=== PATIENT | female | born 1990 | race African-American/Black ===

== ENCOUNTER 2017-03-18 23:50 | Emergency (ER) | payer OTHER ==
[2017-03-19 00:25] VITALS: BP 108/60; PULSE 94; TEMP 98.3; BMI 25.6
--- NOTE | 2017-03-19 00:36 | PDOC ---
History of Present Illness <Nellie Breen - Last Filed: 03/19/17 00:35> - General History Source: Patient Exam Limitations: No Limitations - History of Present Illness Initial Comments: 03/19/17 01:28 The patient is a 26 year old female who is currently 11 weeks , A3, with a significant past medical history of, who presents to the emergency department with abdominal pain and vaginal bleeding onset today. She reports that she was having sexual intercourse when the symptoms began. She notes that she has gone through one pad today thus far. The patient denies chest pain, shortness of breath, headache and dizziness. Denies fever, chills, nausea, vomit, diarrhea and constipation. Denies dysuria, frequency and urgency. Allergies: None Past surgical history: None reported Social history: No alcohol, tobacco or drug use reported <Osmani Bueno - Last Filed: 03/19/17 02:03> <Megan Pascual - Last Filed: 03/19/17 05:22> - General Chief Complaint: Pain, Acute Stated Complaint: 11 WEEKS VAGNIAL BLEED Time Seen by Provider: 03/19/17 00:31 Past History - Suicide/Smoking/Psychosocial Hx Smoking History: Never smoked Have you smoked in the past 12 months: No Information on smoking cessation initiated: No Hx Alcohol Use: No Drug/Substance Use Hx: No <Nellie Breen - Last Filed: 03/19/17 00:35> <Osmani Bueno - Last Filed: 03/19/17 02:03> <Megan Pascual - Last Filed: 03/19/17 05:22> - Past Medical History Allergies/Adverse Reactions: Allergies Allergy/AdvReac Type Severity Reaction Status Date / Time No Known Allergies Allergy Verified 03/19/17 00:23 Home Medications: Ambulatory Orders Nitrofurantoin Macrocrystal [Macrodantin -] 100 mg PO BID 03/19/17 Vit/Iron Fumarate/FA [ Tablet] 1 each PO DAILY 03/19/17 Review of Systems - Review of Systems Able to Perform ROS?: Yes Comments:: 03/19/17 01:29 GENERAL/CONSTITUTIONAL: No fever or chills. No weakness. HEAD, EYES, EARS, NOSE AND THROAT: No change in vision. No ear pain or discharge. No sore throat.- CARDIOVASCULAR: No chest pain or shortness of breath RESPIRATORY: No cough, wheezing, or hemoptysis. GASTROINTESTINAL: (+) Abdominal pain. No nausea, vomiting, diarrhea or constipation. GENITOURINARY: (+) Vaginal bleeding. No dysuria, frequency, or change in urination. MUSCULOSKELETAL: No joint or muscle swelling or pain. No neck or back pain. SKIN: No rash NEUROLOGIC: No headache, vertigo, loss of consciousness, or change in strength/ sensation. ENDOCRINE: No increased thirst. No abnormal weight change HEMATOLOGIC/LYMPHATIC: No anemia, easy bleeding, or history of blood clots. ALLERGIC/IMMUNOLOGIC: No hives or skin allergy. <Osmani Bueno - Last Filed: 03/19/17 02:03> *Physical Exam - Vital Signs Last Vital Signs Temp Pulse Resp BP Pulse Ox 98.3 F 94 H 20 108/60 100 03/19/17 00:23 03/19/17 00:23 03/19/17 00:23 03/19/17 00:23 03/19/17 00:23 <Nellie Breen - Last Filed: 03/19/17 00:35> - Vital Signs Last Vital Signs Temp Pulse Resp BP Pulse Ox 98.3 F 94 H 20 108/60 100 03/19/17 00:23 03/19/17 00:23 03/19/17 00:23 03/19/17 00:23 03/19/17 00:23 - Physical Exam Comments: 03/19/17 01:29 GENERAL: Awake, alert, and fully oriented, in no acute distress HEAD: No signs of trauma, normocephalic, atraumatic EYES: PERRLA, EOMI, sclera anicteric, conjunctiva clear ENT: Auricles normal inspection, hearing grossly normal, nares patent, oropharynx clear without exudates. Moist mucosa NECK: Normal ROM, supple, no lymphadenopathy, JVD, or masses LUNGS: No distress, speaks full sentences, clear to auscultation bilaterally HEART: Regular rate and rhythm, normal S1 and S2, no murmurs, rubs or gallops, peripheral pulses normal and equal bilaterally. ABDOMEN: Soft, nontender, normoactive bowel sounds. No guarding, no rebound. No masses EXTREMITIES : Normal inspection, Normal range of motion, no edema. No clubbing or cyanosis. NEUROLOGICAL: Cranial nerves II through XII grossly intact. Normal speech, normal gait, no focal sensorimotor deficits SKIN: Warm, Dry, normal turgor, no rashes or lesions noted. PELVIC EXAM: (+) Mild vaginal bleeding in the vault. Os is closed. Mild left adnexal tenderness. <Osmani Bueno - Last Filed: 03/19/17 02:03> - Vital Signs Last Vital Signs Temp Pulse Resp BP Pulse Ox 98.3 F 94 H 20 108/60 100 03/19/17 00:23 03/19/17 00:23 03/19/17 00:23 03/19/17 00:23 03/19/17 00:23 <Megan Pascual - Last Filed: 03/19/17 05:22> ED Treatment Course - LABORATORY CBC & Chemistry Diagram: 03/19/17 02:05 03/19/17 02:05 - ADDITIONAL ORDERS Additional order review: Laboratory Results 03/19/17 02:05 Sodium 140 Potassium 3.7 Chloride 105 Carbon Dioxide 26 Anion Gap 9 BUN 11 Creatinine 0.7 Creat Clearance w eGFR > 60 Random Glucose 98 Calcium 8.6 Total Bilirubin 0.4 AST 6 L ALT 10 L Alkaline Phosphatase 53 Total Protein 6.7 Albumin 3.5 03/19/17 02:05 RBC 3.92 MCV 91.5 MCHC 33.4 RDW 12.9 MPV 9.1 Neutrophils % 63.9 Lymphocytes % 25.1 Monocytes % 9.4 Eosinophils % 0.7 Basophils % 0.9 <Megan Pascual - Last Filed: 03/19/17 05:22> Medical Decision Making - Medical Decision Making 03/19/17 05:21 RH POSITIVE; pt has an 8 week to 9 week fetus. She will be sent home with a dx of threatened . Home with MAINTENANCE CUSTODIAN follow up. <Megan Pascual - Last Filed: 03/19/17 05:22> *DC/Admit/Observation/Transfer <Nellie Breen - Last Filed: 03/19/17 00:35> - Attestations Scribe Attestion: 03/19/17 01:30 Documentation prepared by Osmani Bueno, acting as ophthalmic medical technologist for Nellie Breen MD <Osmani Bueno - Last Filed: 03/19/17 02:03> - Discharge Dispostion Admit: No <Megan Pascual - Last Filed: 03/19/17 05:22> Diagnosis at time of Disposition: Threatened - Discharge Dispostion Disposition: HOME Condition at time of disposition: Improved - Referrals Referrals: Aby Wilhelm MD [Staff Physician] - - Patient Instructions Printed Discharge Instructions: DI for Threatened - Post Discharge Activity
[2017-03-19 02:25] LABS: BASOPHIL 0.9 % (0-2.0); EOSINOPHIL 0.7 % (0-4.5); MCH 30.6 pg (25.7-33.7); MCHC 33.4 g/dl (32.0-36.0); MEAN CELL VOLUME 91.5 fl (80-96); MEAN PLT VOLUME 9.1 fl (7.5-11.1); NEUTROPHILS 63.9 % (42.8-82.8); PLATELET COUNT 199 K/MM3 (134-434); RDW 12.9 % (11.6-15.6); WHITE BLOOD COUNT 7.2 K/mm3 (4.0-10.0)
[2017-03-19 02:54] LABS: ALBUMIN 3.5 g/dl (3.4-5.0); ANION GAP 9 (8-16); BILIRUBIN,TOTAL 0.4 mg/dL (0.2-1.0); CALCIUM 8.6 mg/dL (8.5-10.1); CO2 26 mmol/L (21-32); CREATININE 0.7 mg/dL (0.55-1.02); GLUCOSE,RANDOM 98 mg/dL (74-106); SGOT/AST 6 U/L (15-37); SGPT/ALT 10 U/L (12-78); TOT PROT 6.7 g/dl (6.4-8.2)
[2017-03-19 02:56] LABS: ALK PHOS 53 U/L (45-117)
== END 2017-03-19 03:20 | disposition home or self-care (01) ==
LOC: JER 23:50
DX: O26.891 Other specified pregnancy related conditions, first trimester (principal); O20.0 Threatened abortion; Z3A.08 8 weeks gestation of pregnancy
CPT/HCPCS: 36415; 76817-TC; 80053; 84702; 85025; 86850; 86900; 86901; 99283-25

== ENCOUNTER 2017-03-22 18:55 | Emergency (ER) | payer OTHER ==
[2017-03-22 19:00] VITALS: BP 131/66; PULSE 87; TEMP 97.8; BMI 25.0
[2017-03-22 20:36] LABS: BASOPHIL 0.5 % (0-2.0); EOSINOPHIL 0.5 % (0-4.5); MCH 31.7 pg (25.7-33.7); MCHC 34.5 g/dl (32.0-36.0); MEAN CELL VOLUME 91.8 fl (80-96); MEAN PLT VOLUME 8.9 fl (7.5-11.1); NEUTROPHILS 64.9 % (42.8-82.8); PLATELET COUNT 193 K/MM3 (134-434); RDW 13.2 % (11.6-15.6); WHITE BLOOD COUNT 6.5 K/mm3 (4.0-10.0)
--- NOTE | 2017-03-22 21:13 | PDOC ---
History of Present Illness - General History Source: Patient Exam Limitations: No Limitations - History of Present Illness Initial Comments: 03/22/17 21:15 The patient is a 26 year old approximately 9 weeks female (A3), with no significant past medical history, who presents to the emergency department with vaginal bleeding for approximately 4 days. The patient reports she has been noting bright red spotting when she wipes after urination for 4 days. She denies any vaginal blood clots, dysuria, hematuria, frequency, or urgency. She denies any abdominal pain, nausea, vomiting, diarrhea, or constipation. Patient reports she was seen in the ED on 03/19/17 with similar symptoms, where she was told she had a threatened . However, when the patient went to visit her PCP, Dr. Jarrell, the patient was told the US revealed no heart motion. Patient states she desires a repeat US to confirm what her PCP told her. She denies any nausea, vomiting, fever, or chills. She denies any heavy lifting, recent travel, or sick contacts. 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 Social History: Non smoker. No ETOH or recreational drug use. PCP: Dr. Jarrell <Jennifer Ye - Last Filed: 03/22/17 22:04> <Edward Mckeon - Last Filed: 03/22/17 22:09> - General Chief Complaint: Vaginal Bleeding Stated Complaint: VAGINAL BLEEDING Time Seen by Provider: 03/22/17 20:06 Past History <Jennifer Ye - Last Filed: 03/22/17 22:04> - Past Medical History Anemia: No Asthma: No Cancer: No Cardiac Disorders: No CVA: No COPD: No DVT: No Dementia: No Diabetes: No Dialysis: No GI Disorders: No Disorders: No HTN: No Hypercholesterolemia: No Kidney Stones: No Liver Disease: No Psychiatric Problems: No Seizures: No Thyroid Disease: No Lung CA: No - Surgical History Neurologic Surgery: Yes (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) - Reproductive History Is Patient Now?: Yes (#): 5 Para: 1 Therapeutic (s) & number: Yes (3) - Suicide/Smoking/Psychosocial Hx Smoking History: Never smoked Have you smoked in the past 12 months: No Hx Alcohol Use: No Drug/Substance Use Hx: No Substance Use Type: None <Edward Mckeon - Last Filed: 03/22/17 22:09> - Past Medical History Allergies/Adverse Reactions: Allergies Allergy/AdvReac Type Severity Reaction Status Date / Time No Known Allergies Allergy Verified 03/22/17 19:00 Home Medications: Ambulatory Orders Nitrofurantoin Macrocrystal [Macrodantin -] 100 mg PO BID 03/19/17 Vit/Iron Fumarate/FA [ Tablet] 1 each PO DAILY 03/19/17 Review of Systems - Review of Systems Able to Perform ROS?: Yes Comments:: 03/22/17 21:16 CONSTITUTIONAL: No fever, no chills, no fatigue EYES: No visual changes ENT: No ear pain, no sore throat CARDIOVASCULAR: No chest pain, no palpitations RESPIRATORY: No cough, no SOB GI: No abdominal pain, no nausea, no vomiting, no constipation, no diarrhea GENITOURINARY: No dysuria, no frequency, no hematuria PELVIC: Yes vaginal bleeding/spotting. No vaginal clots or discharge. MUSCULOSKELETAL: No back pain, no joint pain, no myalgias SKIN: No rash NEURO: No headache <Tiffanie Yeomilsy - Last Filed: 03/22/17 22:04> *Physical Exam - Vital Signs Last Vital Signs Temp Pulse Resp BP Pulse Ox 97.8 F 87 20 131/66 100 03/22/17 18:56 03/22/17 18:56 03/22/17 18:56 03/22/17 18:56 03/22/17 18:56 - Physical Exam Comments: 03/22/17 21:16 CONSTITUTIONAL: Well-appearing; well-nourished; in no apparent distress HEAD: Normocephalic; atraumatic EYES: PERRL; EOM intact ENMT: External appears normal; normal oropharynx NECK: Supple; non-tender; no cervical lymphadenopathy CARD: Normal S1, S2; no murmurs, rubs, or gallops RESP: Normal chest excursion with respiration; breath sounds clear and equal bilaterally; no wheezes, rhonchi, or rales ABD: Soft, non-distended; non-tender; no palpable organomegaly, no palpable hernias PELVIC: Defer to US. EXT: Normal ROM in all four extremities; non-tender to palpation; distal pulses intact SKIN: Warm, dry, no rash NEURO: No focal neurological deficiencies. <Jennifer eY - Last Filed: 03/22/17 22:04> - Vital Signs Last Vital Signs Temp Pulse Resp BP Pulse Ox 97.8 F 87 20 131/66 100 03/22/17 18:56 03/22/17 18:56 03/22/17 18:56 03/22/17 18:56 03/22/17 18:56 <Edward Mckeon - Last Filed: 03/22/17 22:09> ED Treatment Course - LABORATORY CBC & Chemistry Diagram: 03/22/17 20:32 - ADDITIONAL ORDERS Additional order review: Laboratory Results 03/22/17 20:32 Beta HCG, Quant 860.7 03/22/17 20:32 RBC 3.86 MCV 91.8 MCHC 34.5 RDW 13.2 MPV 8.9 Neutrophils % 64.9 Lymphocytes % 24.5 Monocytes % 9.6 Eosinophils % 0.5 Basophils % 0.5 - RADIOLOGY Radiograph Interpretation: 03/22/17 22:04 EXAM: Obstetrics US INTERPRETED BY: Dr. Harrison REVIEWED BY: Dr. Mckeon IMPRESSION: No definite interval change is seen in comparison to a previous exam of 03/19/2017. Single nonviable intrauterine gestation at approximately 9 weeks 3 days. No cardiac activity is seen. <Jennifer Ye - Last Filed: 03/22/17 22:04> - LABORATORY CBC & Chemistry Diagram: 03/22/17 20:32 - ADDITIONAL ORDERS Additional order review: Laboratory Results 03/22/17 20:32 Beta HCG, Quant 860.7 03/22/17 20:32 RBC 3.86 MCV 91.8 MCHC 34.5 RDW 13.2 MPV 8.9 Neutrophils % 64.9 Lymphocytes % 24.5 Monocytes % 9.6 Eosinophils % 0.5 Basophils % 0.5 - RADIOLOGY Radiology Studies Ordered: Category Date Time Status TRANSVAGINAL US PREG [US] Stat Ultrasound 03/22/17 20:21 Ordered <Edward Mckeon - Last Filed: 03/22/17 22:09> Medical Decision Making - Medical Decision Making 03/22/17 22:08 26-year-old female, 2 para 1, presents to the ER with minimal vaginal spotting. Patient was seen and evaluated in this ER 3 days previously and diagnosed with threatened AB. The patient followed up with her PUMPING STATION SUPERVISOR, she was notified that the was nonviable. Patient returns for reevaluation. Patient's afebrile and hemodynamically stable. Abdominal exam is within normal limit. Beta-hCG has decreased from 1400 to 860 and repeat ultrasound shows no evidence of face. Patient will follow-up with PUMPING STATION SUPERVISOR for further management of this miscarriage. <Edward Mckeon - Last Filed: 03/22/17 22:09> *DC/Admit/Observation/Transfer - Attestations Scribe Attestion: 03/22/17 21:16 Documentation prepared by Jennifer Ye, acting as hospital medical biller for Edward Mckeon MD. <Jennifer Ye - Last Filed: 03/22/17 22:04> - Attestations Physician Attestion: 03/22/17 22:06 The documentation was prepared by the scribe under my direct supervision. I have reviewed the documentation which correctly represents the findings, medical decision-making and critical action taken by me. <Edward Mckeon - Last Filed: 03/22/17 22:09> Diagnosis at time of Disposition: Miscarriage - Discharge Dispostion Disposition: HOME Condition at time of disposition: Stable - Referrals Referrals: Cee Jarrell MD [Primary Care Provider] - - Patient Instructions Printed Discharge Instructions: DI for Miscarriage - Post Discharge Activity
[2017-03-22 21:17] LABS: URINE APPEARANCE CLOUDY; URINE BILIRUBIN NEGATIVE (NEGATIVE); URINE BLOOD NEGATIVE (NEGATIVE); URINE COLOR YELLOW; URINE GLUCOSE (UA) NEGATIVE (NEGATIVE); URINE KETONE NEGATIVE (NEGATIVE); URINE NITRITE NEGATIVE (NEGATIVE); URINE PROTEIN NEGATIVE (NEGATIVE)
[2017-03-23 10:42] LABS: URINE LEUK ESTERASE Negative (NEGATIVE)
== END 2017-03-22 22:16 | disposition home or self-care (01) ==
LOC: JER 18:55
DX: O02.1 Missed abortion (principal); Z3A.09 9 weeks gestation of pregnancy
CPT/HCPCS: 36415; 76801-TC; 81003; 84702; 85025; 86850; 86900; 86901; 99284-25

== ENCOUNTER 2017-05-24 21:28 | Emergency (ER) | payer OTHER ==
[2017-05-24 22:38] VITALS: BP 99/64; PULSE 68; TEMP 98.9; BMI 25.0
--- NOTE | 2017-05-24 22:59 | PDOC ---
History of Present Illness - General History Source: Patient Exam Limitations: No Limitations - History of Present Illness Initial Comments: 05/24/17 23:03 The patient is a 26 year old female presenting with her boyfriend, with no significant past medical history, who presents to the emergency department with right foot swelling, pain and numbness/tingling for the past few days. But notes that she has been having swelling and tingling on the right foot intermittently for the past 7 years. She reports that this began when she got 7 years ago and gain an excessive amount of weight. She states that at time she wakes up with the foot swelling and sometimes she doesnt, other times the pain wakes her from her sleep. She reports that she works standing up most of the day. The patient denies chest pain, shortness of breath, headache and dizziness. Denies fever, chills, nausea, vomit, diarrhea and constipation. Allergies: Hydrocodeine Past Surgical History: Benign tumor removed from kidney, . Social History: Non smoker. No ETOH or recreational drug use. PCP: Dr. Jarrell <Osmani Bueno - Last Filed: 05/24/17 23:02> <Radha Lopez - Last Filed: 05/25/17 00:43> - General Chief Complaint: Edema Stated Complaint: FOOT INJURY Time Seen by Provider: 05/24/17 22:51 Past History <Osmani Bueno - Last Filed: 05/24/17 23:02> - Past Medical History Anemia: No Asthma: No Cancer: No Cardiac Disorders: No CVA: No COPD: No DVT: No Dementia: No Diabetes: No Dialysis: No GI Disorders: No Disorders: No HTN: No Hypercholesterolemia: No Kidney Stones: No Liver Disease: No Psychiatric Problems: No Seizures: No Thyroid Disease: No Lung CA: No - Surgical History Neurologic Surgery: Yes (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) - Reproductive History (#): 5 Para: 1 Therapeutic (s) & number: Yes (3) - Suicide/Smoking/Psychosocial Hx Smoking History: Never smoked Have you smoked in the past 12 months: No Hx Alcohol Use: No Drug/Substance Use Hx: No Substance Use Type: None <Radha Lopez - Last Filed: 05/25/17 00:43> - Past Medical History Allergies/Adverse Reactions: Allergies Allergy/AdvReac Type Severity Reaction Status Date / Time hydrocodone Allergy Verified 05/24/17 22:34 Home Medications: Ambulatory Orders NK [No Known Home Medication] 05/25/17 Review of Systems - Review of Systems Able to Perform ROS?: Yes Comments:: 05/24/17 23:03 GENERAL/CONSTITUTIONAL: No fever or chills. No weakness. HEAD, EYES, EARS, NOSE AND THROAT: No change in vision. No ear pain or discharge. No sore throat.- CARDIOVASCULAR: No chest pain or shortness of breath RESPIRATORY: No cough, wheezing, or hemoptysis. GASTROINTESTINAL: No nausea, vomiting, diarrhea or constipation. GENITOURINARY: No dysuria, frequency, or change in urination. MUSCULOSKELETAL: No joint or muscle swelling or pain. No neck or back pain. EXTREMITIES: (+) Right foot swelling, tingling and pain. SKIN: No rash NEUROLOGIC: No headache, vertigo, loss of consciousness, or change in strength/ sensation. ENDOCRINE: No increased thirst. No abnormal weight change HEMATOLOGIC/LYMPHATIC: No anemia, easy bleeding, or history of blood clots. ALLERGIC/IMMUNOLOGIC: No hives or skin allergy. <Osmani Bueno - Last Filed: 05/24/17 23:02> *Physical Exam - Vital Signs Last Vital Signs Temp Pulse Resp BP Pulse Ox 98.9 F 68 18 99/64 100 05/24/17 22:35 05/24/17 22:35 05/24/17 22:35 05/24/17 22:35 05/24/17 22:35 - Physical Exam Comments: 05/24/17 23:03 GENERAL: Awake, alert, and fully oriented, in no acute distress HEAD: No signs of trauma, normocephalic, atraumatic EYES: PERRLA, EOMI, sclera anicteric, conjunctiva clear ENT: Auricles normal inspection, hearing grossly normal, nares patent, oropharynx clear without exudates. Moist mucosa NECK: Normal ROM, supple, no lymphadenopathy, JVD, or masses LUNGS: No distress, speaks full sentences, clear to auscultation bilaterally HEART: Regular rate and rhythm, normal S1 and S2, no murmurs, rubs or gallops, peripheral pulses normal and equal bilaterally. ABDOMEN: Soft, nontender, normoactive bowel sounds. No guarding, no rebound. No masses EXTREMITIES : Normal inspection, Normal range of motion, no edema. No clubbing or cyanosis. NEUROLOGICAL: Cranial nerves II through XII grossly intact. Normal speech, normal gait, no focal sensorimotor deficits SKIN: Warm, Dry, normal turgor, no rashes or lesions noted. <Osmani Bueno - Last Filed: 05/24/17 23:02> - Vital Signs Last Vital Signs Temp Pulse Resp BP Pulse Ox 98.9 F 68 18 99/64 100 05/24/17 22:35 05/24/17 22:35 05/24/17 22:35 05/24/17 22:35 05/24/17 22:35 <Radha Lopez - Last Filed: 05/25/17 00:43> Medical Decision Making - Medical Decision Making 05/24/17 23:00 a/p: 26yo female with R foot swelling after standing all day at work -has had back pain x 7 years with tingling x 7 years after -swelling x a few days -will obtain an ultrasound of the RLE to r/o dvt -motrin for pain -upreg 05/25/17 00:41 doppler negative for dvt 05/25/17 00:42 discussed with the lab, test was negative stable for d.c to home pt requesting work note for tomorrow. <Radha Lopez - Last Filed: 05/25/17 00:43> *DC/Admit/Observation/Transfer - Attestations Scribe Attestion: 05/24/17 23:03 Documentation prepared by Osmani Bueno, acting as medical malpractice paralegal for Radha Lopez DO <Osmani Bueno - Last Filed: 05/24/17 23:02> - Discharge Dispostion Admit: No - Attestations Physician Attestion: 05/25/17 00:34 I, Dr. Radha Lopez DO, attest that this document has been prepared under my direction and personally reviewed by me in its entirety. I further attest, that it accurately reflects all work, treatment, procedures and medical decision -making performed by me. <Radha Lopez - Last Filed: 05/25/17 00:43> Diagnosis at time of Disposition: Edema of right foot - Discharge Dispostion Disposition: HOME Condition at time of disposition: Stable - Referrals Referrals: Cee Jarrell MD [Primary Care Provider] - - Patient Instructions Printed Discharge Instructions: DI for Dependent Edema Additional Instructions: Please make and appointment to be seen by your PMD. Please return to the ED with any further complaints. Please buy compression socks to wear while at work. - Post Discharge Activity Forms/Work/School Notes: Back to Work
[2017-05-24] MEDS ORDERED: IBUPROFEN 600 MG TABLET (FP) PO ONE (23:02)
[2017-05-25] MEDS ORDERED: IBUPROFEN 600 MG TABLET (FP) PO ONE (00:11)
== END 2017-05-25 01:12 | disposition home or self-care (01) ==
LOC: JER 21:28
DX: R20.2 Paresthesia of skin (principal); R60.9 Edema, unspecified
CPT/HCPCS: 84703; 93971-TC; 99281-25

== ENCOUNTER 2017-06-12 22:36 | Emergency (ER) | payer OTHER ==
[2017-06-12 23:18] VITALS: BP 119/65; PULSE 80; TEMP 99.4; BMI 25.7
--- NOTE | 2017-06-13 01:04 | PDOC ---
History of Present Illness - General Chief Complaint: Edema Stated Complaint: PAIN Time Seen by Provider: 06/13/17 00:28 History Source: Patient - History of Present Illness Initial Comments: 06/13/17 01:06 26-year-old female with a history of migraines and sciatica presents to the emergency department complaining of a chronic right foot pain 7 years. Patient states she has seen numerous vamp marker and has been seen in numerous emergency departments. She's been informed that she has a chronic pain with unknown etiology. Patient states she decided to come to the emergency department here today to get documentation that her foot is hurting. Pain is described as 3/10 dull nonradiating intermittent discomfort which is exacerbated on touch sometimes and alleviated at rest. Patient denies injury, extremity numbness or tingling sensation. Patient denies ankle or knee pains. Occurred: reports: other (x 7 years) Past History - Past Medical History Allergies/Adverse Reactions: Allergies Allergy/AdvReac Type Severity Reaction Status Date / Time hydrocodone Allergy Verified 06/12/17 23:18 Home Medications: Ambulatory Orders NK [No Known Home Medication] 05/25/17 Anemia: No Asthma: No Cancer: No Cardiac Disorders: No CVA: No COPD: No DVT: No Dementia: No Diabetes: No Dialysis: No GI Disorders: No Disorders: No HTN: No Hypercholesterolemia: No Kidney Stones: No Liver Disease: No Psychiatric Problems: No Seizures: No Thyroid Disease: No Lung CA: No - Surgical History Neurologic Surgery: Yes (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) - Reproductive History (#): 5 Para: 1 Therapeutic (s) & number: Yes (3) - Suicide/Smoking/Psychosocial Hx Smoking History: Never smoked Have you smoked in the past 12 months: No Information on smoking cessation initiated: No Hx Alcohol Use: No Drug/Substance Use Hx: No Substance Use Type: None Review of Systems - Review of Systems Able to Perform ROS?: Yes Comments:: 06/13/17 01:05 CONSTITUTIONAL: Absent: fever, chills, diaphoresis, generalized weakness, malaise, loss of appetite HEENT: Absent: rhinorrhea, nasal congestion, throat pain, throat swelling, difficulty swallowing, mouth swelling, ear pain, eye pain, visual Changes MUSCULOSKELETAL: +Right foot pain x 7 years Absent: myalgia, arthralgia, joint swelling SKIN: Absent: rash, itching, pallor Is the patient limited [place] proficient: No *Physical Exam - Vital Signs Last Vital Signs Temp Pulse Resp BP Pulse Ox 99.4 F 80 16 119/65 100 06/12/17 23:12 06/12/17 23:12 06/12/17 23:12 06/12/17 23:12 06/12/17 23:12 - Physical Exam Comments: 06/13/17 01:05 GENERAL: Well developed, well nourished. Awake and alert. No acute distress. MUSCULOSKELETAL Normal range of motion at all joints. No bony deformities or tenderness. No CVA tenderness. EXTREMITIES: No cyanosis. No clubbing. No edema. No calf tenderness. SKIN: Warm and dry. Normal capillary refill. No rashes. No jaundice. Right foot F.R.O.M. cap refill <2sec 2 point discrimination intact 2+pedal pulse achilles intact right ankle F/R/O/M. *DC/Admit/Observation/Transfer Diagnosis at time of Disposition: Chronic pain in right foot - Discharge Dispostion Disposition: HOME Condition at time of disposition: Stable Admit: No - Referrals Referrals: Pavel Argueta MD [Staff Physician] - - Patient Instructions Printed Discharge Instructions: DI for Foot Pain Additional Instructions: Ice; 20 mins on alternating with 20 mins off for 48 hours while awake. Rest Elevate Follow up with your orthopedic surgeon or the one listed on the discharge form. Return to the ER for severe/persistent/worsening symptoms, extremity numbness/ tingling sensation. - Post Discharge Activity
== END 2017-06-13 01:09 | disposition home or self-care (01) ==
LOC: JERFT 22:36
DX: M25.571 Pain in right ankle and joints of right foot (principal)
CPT/HCPCS: 99281-25

== ENCOUNTER 2017-09-02 15:02 | Emergency (ER) | payer OTHER ==
[2017-09-02 15:23] VITALS: BP 113/72; PULSE 82; TEMP 99.3; BMI 25.2
--- NOTE | 2017-09-02 15:51 | PDOC ---
History of Present Illness - General Chief Complaint: Back Pain Stated Complaint: BACK PAIN Time Seen by Provider: 09/02/17 15:25 - History of Present Illness Initial Comments: 09/02/17 15:49 CHIEF COMPLAINT: back pain HISTORY OF PRESENT ILLNESS: 26 yo F with no significant PMH presents to fast track with mid back pain and b/l groin pain x "a couple weeks." Patient reports that she had a full STD workup two weeks ago that came back negative. She reports that her LMP was "a long time ago." She denies any fever, chills, nausea, vomiting or diarrhea. PAST MEDICAL HISTORY: Denies past medical history FAMILY HISTORY: Denies SOCIAL HISTORY: Denies tobacco, alcohol, illicit drug use. SURGICAL HISTORY: Denies ALLERGIES: No known drug allergies REVIEW OF SYSTEMS General/Constitutional: Denies fever or chills. Denies weakness, weight change. HEENT: Denies change in vision. Denies ear pain or discharge. Denies sore throat. Cardiovascular: Denies chest pain or shortness of breath. Respiratory: Denies cough, wheezing, or hemoptysis. Gastrointestinal: Denies nausea, vomiting, diarrhea or constipation. Denies rectal bleeding. Genitourinary: Denies dysuria, frequency, or change in urination. Musculoskeletal: Mid back pain, b/l groin pain. Denies joint or muscle swelling or pain. Skin and breasts: Denies rash or easy bruising. PHYSICAL EXAM General Appearance: Well-appearing, appropriately dressed. No apparent distress. HEENT: EOMI, PERRLA, normal ENT inspection, normal voice, TMs normal, pharynx normal. No conjunctival pallor. No photophobia, scleral icterus. Respiratory/Chest: Lungs CTAB. Cardiovascular: RRR. S1, S2. Gastrointestinal/Abdominal: Normal bowel sounds. Abdomen soft, non-distended. No tenderness or rebound tenderness. No organomegaly, pulsatile mass, guarding , hernia, hepatomegaly, splenomegaly. Musculoskeletal/Extremities: Normal inspection. FROM of all extremities, normal capillary refill. Pelvis Stable. No CVA tenderness. No tenderness to extremities, pedal edema, swelling, erythema or deformity. Integumentary: Appropriate color, dry, warm. 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 Fully oriented, alert. Appropriate mood/affect. Motor strength 5/5. No appreciable EOM palsy, facial droop or sensory deficit. Past History - Past Medical History Allergies/Adverse Reactions: Allergies Allergy/AdvReac Type Severity Reaction Status Date / Time hydrocodone Allergy Verified 09/02/17 15:20 Home Medications: Ambulatory Orders NK [No Known Home Medication] 05/25/17 Anemia: No Asthma: No Cancer: No Cardiac Disorders: No CVA: No COPD: No DVT: No Dementia: No Diabetes: No Dialysis: No GI Disorders: No Disorders: No HTN: No Hypercholesterolemia: No Kidney Stones: No Liver Disease: No Psychiatric Problems: No Seizures: No Thyroid Disease: No Lung CA: No Other medical history: SCIATICA, MIGRANES - Surgical History Neurologic Surgery: Yes (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" -Upreg urine positive. Discussed results from *DC/Admit/Observation/Transfer Diagnosis at time of Disposition: - Discharge Dispostion Disposition: HOME Condition at time of disposition: Stable Admit: No - Referrals Referrals: Romel Merchant MD [Staff Physician] - - Patient Instructions Printed Discharge Instructions: Common Discomforts and Bodily Changes During Additional Instructions: As discussed, please follow up with the OBGYN on Monday as planned. If you develop any vagina bleeding, cramping, or any new or worsening symptoms, please return to the ER. - Post Discharge Activity
[2017-09-02] MEDS ORDERED: KETOROLAC TROMETHAMINE 60 MG/2 ML VIAL ONE (16:24)
== END 2017-09-02 16:51 | disposition home or self-care (01) ==
LOC: JERFT 15:02
DX: O26.899 Other specified pregnancy related conditions, unspecified trimester (principal); M54.5 Low back pain; R10.30 Lower abdominal pain, unspecified; Z3A.00 Weeks of gestation of pregnancy not specified
CPT/HCPCS: 84703; 99281-25

== ENCOUNTER 2017-09-12 17:48 | Emergency (ER) | payer OTHER ==
--- NOTE | 2017-09-12 18:02 | PDOC ---
Rapid Medical Evaluation Time Seen by Provider: 09/12/17 18:00 Medical Evaluation: Allergies Allergy/AdvReac Type Severity Reaction Status Date / Time hydrocodone Allergy Verified 09/02/17 15:20 09/12/17 18:00 I have performed a brief in-person evaluation of this patient. The patient presents with a chief complaint of: Patient , 7 weeks with vaginal bleeding x 1/2 hour Denies pain Pertinent physical exam findings: NAD unlabored breathing heart s1s2 I have ordered the following: labs, urine hcg The patient will proceed to the ED for further evaluation.
[2017-09-12 18:03] VITALS: BP 120/65; PULSE 85; TEMP 98.5; BMI 24.1
[2017-09-12 18:31] LABS: BASO % 0.3 % (0-2.0); EOS % 0.3 % (0-4.5); HEMATOCRIT 36.5 % (32.4-45.2); HEMOGLOBIN 12.4 GM/dL (10.7-15.3); LYMPH % 17.2 % (8-40); MCH 30.9 pg (25.7-33.7); MCHC 33.8 g/dl (32.0-36.0); MEAN CELL VOLUME 91.4 fl (80-96); MEAN PLT VOLUME 8.9 fl (7.5-11.1); MONO % 9.2 % (3.8-10.2); PLATELET COUNT 231 K/MM3 (134-434); RDW 13.1 % (11.6-15.6); WHITE BLOOD COUNT 7.9 K/mm3 (4.0-10.0)
--- NOTE | 2017-09-12 20:15 | PDOC ---
History of Present Illness - General History Source: Patient Exam Limitations: No Limitations - History of Present Illness Initial Comments: 09/12/17 20:44 The patient is a 26 year old female with a significant PMH of migraines and sciatica who presents to the emergency department with 1 and a half hours of vaginal bleeding. The patient reports that she is 7 weeks . She states that she was at home sitting down when she felt an onset of bleeding. She states that it felt like a normal stat of a period. The patient reports that her last menstrual cycle was 07/21/17. It is noted that the patient is . The patient denies any cramping or pain or discharge at time of exam. She denies any chest pain, shortness of breath, headache and dizziness.She denies any fever , chills, nausea, vomit, diarrhea, constipation or urinary complaints. The patient denies any other complaints. <Jose Rodriguez - Last Filed: 09/12/17 20:44> <Grace Pena - Last Filed: 09/13/17 02:06> - General Chief Complaint: Vaginal Bleeding Stated Complaint: VAGINAL BLEEDING (7 WKS ) Time Seen by Provider: 09/12/17 18:00 Past History <Jose Rodriguez - Last Filed: 09/12/17 20:44> - Past Medical History Anemia: No Asthma: No Cancer: No Cardiac Disorders: No CVA: No COPD: No DVT: No Dementia: No Diabetes: No Dialysis: No GI Disorders: No Disorders: No HTN: No Hypercholesterolemia: No Kidney Stones: No Liver Disease: No Psychiatric Problems: No Seizures: No Thyroid Disease: No Lung CA: No - Surgical History Neurologic Surgery: Yes (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) - Reproductive History (#): 5 Para: 1 Therapeutic (s) & number: Yes (3) - Suicide/Smoking/Psychosocial Hx Smoking History: Never smoked Have you smoked in the past 12 months: No Hx Alcohol Use: No Drug/Substance Use Hx: No Substance Use Type: None <Grace Pena - Last Filed: 09/13/17 02:06> - Past Medical History Allergies/Adverse Reactions: Allergies Allergy/AdvReac Type Severity Reaction Status Date / Time hydrocodone Allergy Verified 09/12/17 18:01 Home Medications: Ambulatory Orders NK [No Known Home Medication] 05/25/17 Review of Systems - Review of Systems Able to Perform ROS?: Yes Comments:: 09/12/17 20:44 CONSTITUTIONAL: Absent: fever, chills, diaphoresis, generalized weakness, malaise, loss of appetite HEENT: Absent: rhinorrhea, nasal congestion, throat pain, throat swelling, difficulty swallowing, mouth swelling, ear pain, eye pain, visual Changes CARDIOVASCULAR: Absent: chest pain, syncope, palpitations, irregular heart rate, lightheadedness , peripheral edema RESPIRATORY: Absent: cough, shortness of breath, dyspnea with exertion, orthopnea, wheezing, stridor, hemoptysis GASTROINTESTINAL: Absent: abdominal pain, abdominal distension, nausea, vomiting, diarrhea, constipation, melena, hematochezia GENITOURINARY: present(+) Vaginal bleeding Absent: dysuria, frequency, urgency, hesitancy, hematuria, flank pain, genital pain MUSCULOSKELETAL: Absent: myalgia, arthralgia, joint swelling SKIN: Absent: rash, itching, pallor HEMATOLOGIC/IMMUNOLOGIC: Absent: easy bleeding, easy bruising, lymphadenopathy, frequent infections ENDOCRINE: Absent: unexplained weight gain, unexplained weight loss, heat intolerance, cold intolerance NEUROLOGIC: Absent: headache, focal weakness or paresthesias, dizziness, unsteady gait, seizure, mental status changes, bladder or bowel incontinence PSYCHIATRIC: Absent: anxiety, depression, suicidal or homicidal ideation, hallucinations. <Jose Rodriguez - Last Filed: 09/12/17 20:44> *Physical Exam - Vital Signs Last Vital Signs Temp Pulse Resp BP Pulse Ox 98.5 F 85 18 120/65 99 09/12/17 18:01 09/12/17 18:01 09/12/17 18:01 09/12/17 18:01 09/12/17 18:01 - Physical Exam Comments: 09/12/17 20:45 GENERAL: Well developed, well nourished. Awake and alert. No acute distress. HEENT: Normocephalic, atraumatic. PERRLA, EOMI. No conjunctival pallor. Sclera are non- icteric. Moist mucous membranes. Oropharynx is clear. NECK: Supple. Full ROM. No JVD. Carotid pulses 2+ and symmetric, without bruits. No thyromegaly. No lymphadenopathy. CARDIOVASCULAR: Regular rate and rhythm. No murmurs, rubs, or gallops. Distal pulses are 2+ and symmetric. PULMONARY: No evidence of respiratory distress. Lungs clear to auscultation bilaterally. No wheezing, rales or rhonchi. ABDOMINAL: Soft. Non-tender. Non-distended. No rebound or guarding. No organomegaly. Normoactive bowel sounds. MUSCULOSKELETAL Normal range of motion at all joints. No bony deformities or tenderness. No CVA tenderness. EXTREMITIES: No cyanosis. No clubbing. No edema. No calf tenderness. SKIN: Warm and dry. Normal capillary refill. No rashes. No jaundice. NEUROLOGICAL: Alert, awake, appropriate. Cranial nerves 2-12 intact. No deficits to light touch and temperature in face, upper extremities and lower extremities. No motor deficits in the in face, upper extremities and lower extremities. Normoreflexic in the upper and lower extremities. Normal speech. Toes are down- going bilaterally. Gait is normal without ataxia. PSYCHIATRIC: Cooperative. Good eye contact. Appropriate mood and affect. <Jose Rodriguez - Last Filed: 09/12/17 20:44> - Vital Signs Last Vital Signs Temp Pulse Resp BP Pulse Ox 98.5 F 85 18 120/65 99 09/12/17 18:01 09/12/17 18:01 09/12/17 18:01 09/12/17 18:01 09/12/17 18:01 <Grace Pena - Last Filed: 09/13/17 02:06> ED Treatment Course - LABORATORY CBC & Chemistry Diagram: 09/12/17 18:15 - ADDITIONAL ORDERS Additional order review: Laboratory Results 09/12/17 09/12/17 09/12/17 18:15 18:15 18:15 Beta HCG, Quant [id number] Urine HCG, Qual Positive Blood Type A POSITIVE Antibody Screen Negative 09/12/17 18:15 RBC 4.00 MCV 91.4 MCHC 33.8 RDW 13.1 MPV 8.9 Neutrophils % 73.0 Lymphocytes % 17.2 D Monocytes % 9.2 Eosinophils % 0.3 Basophils % 0.3 <Jose Rodriguez - Last Filed: 09/12/17 20:44> - LABORATORY CBC & Chemistry Diagram: 09/12/17 18:15 - ADDITIONAL ORDERS Additional order review: Laboratory Results 09/12/17 09/12/17 09/12/17 18:15 18:15 18:15 Beta HCG, Quant [id number] Urine HCG, Qual Positive Blood Type A POSITIVE Antibody Screen Negative 09/12/17 18:15 RBC 4.00 MCV 91.4 MCHC 33.8 RDW 13.1 MPV 8.9 Neutrophils % 73.0 Lymphocytes % 17.2 D Monocytes % 9.2 Eosinophils % 0.3 Basophils % 0.3 <Grace Pena - Last Filed: 09/13/17 02:06> Medical Decision Making - Medical Decision Making 09/13/17 02:05 67,000 [facility] [place]ag[place] shows single live IUP 7 weeks with heart tones 154 Patient will follow-up with her COMMUNITY 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
== END 2017-09-12 20:48 | disposition home or self-care (01) ==
LOC: JER 17:48
DX: O26.891 Other specified pregnancy related conditions, first trimester (principal); O20.0 Threatened abortion; Z3A.01 Less than 8 weeks gestation of pregnancy
CPT/HCPCS: 36415; 76817-TC; 84702; 84703; 85025; 86850; 86900; 86901; 99281-25

== ENCOUNTER 2024-04-10 09:26 | Emergency (ER) | payer SELFPAY ==
[2024-04-10 09:34] VITALS: BP 110/76; PULSE 103; RESP 18; TEMP 98.5; BMI 34.1
[2024-04-10] MEDS ORDERED: ONDANSETRON 4 MG TABLET PO ONE (10:25)
[2024-04-10] MEDS: ONDANSETRON 4 MG TABLET PO ONE (10:43)
[2024-04-10] MEDS ORDERED: ACETAMINOPHEN INJECTION 100 ML ONE (10:54)
[2024-04-10] MEDS ORDERED: FAMOTIDINE 20 MG/50 ML IVPB 20 MG/50 ML MG IVPB ONE (10:54)
[2024-04-10] MEDS: SODIUM CHLORIDE 1,000 ML IV STA (11:23)
[2024-04-10] MEDS: FAMOTIDINE 20 MG/50 ML IVPB 20 MG/50 ML MG IVPB ONE (11:25)
[2024-04-10 11:27] LABS: HCG,QUALITATIVE URINE Negative
[2024-04-10 11:29] LABS: EPI CELLS 28 /uL (0-25.1); HYALINE CASTS 2 /uL (0-3.1); URINE APPEARANCE CLOUDY; URINE BACTERIA >9,000 /uL (0-1359); URINE BILIRUBIN NEGATIVE (NEGATIVE); URINE COLOR YELLOW; URINE GLUCOSE (UA) NEGATIVE (NEGATIVE); URINE KETONE TRACE (NEGATIVE); URINE LEUK ESTERASE 2+ (NEGATIVE); URINE NITRITE POSITIVE (NEGATIVE); URINE PROTEIN TRACE (NEGATIVE); URINE RBC 44 /uL (0-23.9); URINE WBC 252 /uL (0-25.8)
[2024-04-10 11:39] LABS: BASO % 0.1 % (0-2.0); EOS % 0.2 % (0-4.5); HEMATOCRIT 36.8 % (32.4-45.2); HEMOGLOBIN 12.4 GM/dL (10.7-15.3); LYMPH % 11.9 % (8-40); MCH 29.8 pg (25.7-33.7); MCHC 33.7 g/dl (32.0-36.0); MEAN CELL VOLUME 88.6 fl (80-96); MEAN PLT VOLUME 8.6 fl (7.5-11.1); NEUT % 80.8 % (42.8-82.8); PLATELET COUNT 279 10^3/uL (134-434); RBC 4.16 M/mm3 (3.60-5.2); RDW 12.9 % (11.6-15.6); WHITE BLOOD COUNT 12.3 K/mm3 (4.0-10.0)
[2024-04-10] MEDS: ACETAMINOPHEN 1000 MG/100 ML BAG IVPB ONE (11:44)
[2024-04-10 11:58] LABS: ALBUMIN 4.2 g/dl (3.4-5.0); BLOOD UREA NITROGEN 14.9 mg/dL (7-18); CALCIUM 9.7 mg/dL (8.5-10.1)
[2024-04-10 12:00] LABS: CREATININE 0.8 mg/dL (0.55-1.3)
[2024-04-10 12:04] LABS: TOT PROT 7.6 g/dl (6.4-8.2)
[2024-04-10] MEDS ORDERED: CEPHALEXIN MONOHYDRATE 500 MG CAPSULE (UD) ONE (12:42)
[2024-04-10] MEDS: CEPHALEXIN MONOHYDRATE 500 MG CAPSULE (UD) PO ONE (12:52)
[2024-04-10 13:03] LABS: HIV INTERPRETATION NEGATIVE (NEGATIVE)
== END 2024-04-10 12:52 | disposition home or self-care (01) ==
LOC: JER 09:26
PROC: 3E033GC Introduction of Other Therapeutic Substance into Peripheral Vein, Percutaneous Approach (ICD-10-PCS; principal; 2024-04-10)
PROC: 3E033NZ Introduction of Analgesics, Hypnotics, Sedatives into Peripheral Vein, Percutaneous Approach (ICD-10-PCS; 2024-04-10)
DX: N39.0 Urinary tract infection, site not specified (principal); R11.2 Nausea with vomiting, unspecified; R68.83 Chills (without fever); Z20.822 Contact with and (suspected) exposure to COVID-19
CPT/HCPCS: 0241U-QW; 36415; 80053; 81003; 83690; 84703; 85025; 86803; 87086; 87186; 87389; 87651; 99284-25; J0131